=== PATIENT | female | born 1975 | race African-American/Black ===

== ENCOUNTER 2020-09-09 09:35 | Inpatient (IN) | payer SELFPAY ==
[~2020-09-09] VITALS: Ht 170.2 cm; Wt 79.5 kg
[2020-09-09] MEDS ORDERED: SODIUM CHLORIDE 0.9% 1,000 ML IV ONE ×2 (09:45)
[2020-09-09] MEDS ORDERED: DEXTROSE (50%) 50ML SYRG IV PRN ×2 (10:00→23:30)
[2020-09-09] MEDS ORDERED: InsuLIN R (HUMAN) 100 UNITS in SODIUM CHL 0.9% 99 ML IV SCH (10:00)
[2020-09-09] MEDS: SODIUM CHLORIDE 0.9% 1,000 ML IV SCH ×3 (10:00→19:30)
[2020-09-09] MEDS ORDERED: InsuLIN REG 1unit/0.01ml Soln (100units/ml) IV ONE (10:15)
[2020-09-09 10:27] LABS: Urine WBC None Seen /hpf (0 - 5)
[2020-09-09 10:39] LABS: Urine Bacteria NONE SEEN /hpf (None Seen); Urine Blood Negative /uL (Negative); Urine Specific Gravity 1.024 (1.001-1.035)
[2020-09-09 10:58] LABS: Potassium 4.8 mmol/L (3.5-5.1)
[2020-09-09 11:08] LABS: Basophils # (auto) 0.1 10 ^3/uL (0-0.2); Basophils % (auto) 0.5 % (0.0-2.0); Eosinophils # (auto) 0 10 ^3/uL (0-0.8); Eosinophils % (auto) 0.1 % (0.0-7.0); Hematocrit 47.1 % (36.0-46.0); Hemoglobin 14.7 g/dL (12.2-16.2); Lymphocytes # (auto) 1.4 10 ^3/uL (0.4-5.4); Lymphocytes % (auto) 7.9 % (10.0-50.0); Mean Corpuscular Hemoglobin 30.1 pg (28.0-32.0); Mean Corpuscular Hgb Conc. 31.1 g/dL (32.0-36.0); Mean Corpuscular Volume 96.6 fL (80.0-100.0); Monocytes # (auto) 0.5 10 ^3/uL (0-1.3); Monocytes % (auto) 2.9 % (0.0-12.0); Neutrophils # (auto) 16.1 10 ^3/uL (1.6-8.6); Neutrophils % (auto) 88.6 % (37.0-80.0); Platelet Count (auto) 278 10^3/uL (140-450); Red Blood Cells 4.87 10^6/uL (4.0-5.20); Red Cell Distribution Width 15.2 % (11.8-14.3); White Blood Cell 18.2 10^3/uL (4.4-10.8)
[2020-09-09 11:13] LABS: Albumin 4.4 g/dL (3.4-5.0); BUN/Creatinine Ratio 17.4; Bilirubin, Total 0.6 mg/dL (0.2-1.0); Magnesium 2.4 mg/dL (1.6-2.6); Phosphorus 7.4 mg/dL (2.5-4.90); Total Protein 8.8 g/dL (6.4-8.2)
[2020-09-09] MEDS: ACCU-CHEK COMFORT CURVE STRIP VI SCH ×8 (11:21→21:01)
[2020-09-09] MEDS ORDERED: PIPERACILLIN-TAZOB 3.375GM 100 ML IV ONE (11:45)
[2020-09-09] MEDS ORDERED: NITROGLYCERIN 0.4 MG SL TAB SL PRN ×2 (13:15→14:45)
[2020-09-09] MEDS ORDERED: MORPHINE SULF INJ 2 MG/ML SYRINGE 1ML IV PRN ×3 (13:15→14:45)
[2020-09-09] MEDS ORDERED: SODIUM CHLORIDE 0.9% 1,000 ML IV SCH ×2 (14:00→16:00)
[2020-09-09 14:14] LABS: Lactic Acid w/Reflex 2.4 mmol/L (0.4-2.0)
[2020-09-09] MEDS ORDERED: ALUM & MAG HYDROX-SIMETH LIQ(MAALOX) 30 ML PO PRN (14:45)
[2020-09-09] MEDS ORDERED: ACETAMINOPHEN 325 MG TAB PO PRN (14:45)
[2020-09-09] MEDS ORDERED: LORazepam 0.5 MG TAB PO PRN (14:45)
[2020-09-09] MEDS ORDERED: SUCRALFATE 1 GM/10 ML ORAL SUSP PO ONE (14:45)
[2020-09-09] MEDS ORDERED: PANTOPRAZOLE 40 MG/10 ML VIAL INJ IV ONE (14:45)
[2020-09-09] MEDS ORDERED: cefTRIAXone 1GM/50ML D5W 50 ML IV ONE (14:45)
[2020-09-09] MEDS ORDERED: DOCUSATE SOD 100 MG CAP PO PRN (14:45)
[2020-09-09] MEDS ORDERED: D5W/SOD CHLO 0.9% 1,000 ML IV SCH (14:45)
[2020-09-09] MEDS ORDERED: SODIUM CHLORIDE 0.9% 2,000 ML IV ONE (14:45)
[2020-09-09] MEDS ORDERED: HYDROcodone-ACET 5/325MG TAB PO PRN (14:45)
[2020-09-09] MEDS ORDERED: metroNIDAZOLE 500MG/100ML 100 ML IV ONE (15:30)
[2020-09-09] MEDS ORDERED: METF-929 PO (16:01)
[2020-09-09] MEDS ORDERED: ATOR10TA52 PO (16:01)
[2020-09-09] MEDS ORDERED: MULT1CHW18 PO (16:01)
[2020-09-09] MEDS ORDERED: INSUINJ37 SC (16:01)
[2020-09-09] MEDS ORDERED: ASPI-498 PO (16:01)
[2020-09-09 16:31] LABS: Anion Gap 14 (5-15); Blood Urea Nitrogen 15 mg/dL (7-18); Calcium 7.7 mg/dL (8.5-10.1); Carbon Dioxide 14 mmol/L (21-32); Chloride 113 mmol/L (98-107); Glucose 238 mg/dL (74-106); Potassium 4.2 mmol/L (3.5-5.1); Sodium 141 mmol/L (136-145)
[2020-09-09 16:34] LABS: Cholesterol 237 mg/dL (< 200); Triglycerides 132 mg/dL (< 150)
[2020-09-09 16:35] LABS: BUN/Creatinine Ratio 16.9; GFR African American 88 mL/min; GFR Non-African American 73 mL/min
[2020-09-09 16:36] LABS: HDL Cholesterol 43 mg/dL (40-59); LDL Cholesterol 169 mg/dL (< 100)
[2020-09-09] MEDS: SUCRALFATE 1 GM/10 ML ORAL SUSP PO SCH (22:00)
[2020-09-09] MEDS: metroNIDAZOLE 500MG/100ML 100 ML IV SCH (22:17)
[2020-09-09 23:24] LABS: Calcium 7.6 mg/dL (8.5-10.1); Potassium 3.5 mmol/L (3.5-5.1)
[2020-09-09 23:27] LABS: BUN/Creatinine Ratio 12.3
[2020-09-09] MEDS: ONDANSETRON HCL 4 MG/2 ML VIAL IV PRN (23:27)
[2020-09-10] MEDS ORDERED: ACCU-CHEK COMFORT CURVE STRIP VI SCH
[2020-09-10 00:15] VITALS: BP 132/60
[2020-09-10] MEDS: ACCU-CHEK COMFORT CURVE STRIP VI SCH ×4 (00:29→18:32)
[2020-09-10] MEDS: SODIUM CHLORIDE 0.9% 1,000 ML IV SCH ×4 (03:00→20:44)
[2020-09-10 04:30] LABS: BUN/Creatinine Ratio 10.6; Calcium 7.7 mg/dL (8.5-10.1); Potassium 3.7 mmol/L (3.5-5.1)
[2020-09-10 05:00] VITALS: BP 150/74
[2020-09-10] MEDS: InsuLIN REG 1unit/0.01ml Soln (100units/ml) SC SCH ×4 (06:00→18:32)
[2020-09-10] MEDS: metroNIDAZOLE 500MG/100ML 100 ML IV SCH ×3 (06:12→20:43)
[2020-09-10] MEDS: SUCRALFATE 1 GM/10 ML ORAL SUSP PO SCH ×4 (06:34→20:44)
[2020-09-10 07:49] LABS: Basophils # (auto) 0 10 ^3/uL (0-0.2); Basophils % (auto) 0.3 % (0.0-2.0); Eosinophils # (auto) 0 10 ^3/uL (0-0.8); Eosinophils % (auto) 0.3 % (0.0-7.0); Hemoglobin 12.7 g/dL (12.2-16.2); Lymphocytes # (auto) 2.7 10 ^3/uL (0.4-5.4); Lymphocytes % (auto) 19.3 % (10.0-50.0); Mean Corpuscular Hemoglobin 29.9 pg (28.0-32.0); Mean Corpuscular Hgb Conc. 32.6 g/dL (32.0-36.0); Mean Corpuscular Volume 91.7 fL (80.0-100.0); Monocytes % (auto) 7.1 % (0.0-12.0); Neutrophils # (auto) 10.3 10 ^3/uL (1.6-8.6); Platelet Count (auto) 247 10^3/uL (140-450); Red Blood Cells 4.25 10^6/uL (4.0-5.20); Red Cell Distribution Width 13.9 % (11.8-14.3); White Blood Cell 14.2 10^3/uL (4.4-10.8)
[2020-09-10 08:11] LABS: Calcium 8.2 mg/dL (8.5-10.1); Potassium 3.8 mmol/L (3.5-5.1)
[2020-09-10 08:15] LABS: Bilirubin, Total 0.5 mg/dL (0.2-1.0); Phosphorus 2.2 mg/dL (2.5-4.90); Total Protein 6.3 g/dL (6.4-8.2)
[2020-09-10 08:29] LABS: INR 0.95 (0.9-1.15); Partial Thromboplastin Time 23.9 sec (23.0-31.2)
[2020-09-10 08:59] VITALS: BP 136/65
[2020-09-10] MEDS: PANTOPRAZOLE 40 MG/10 ML VIAL INJ IV SCH (10:00)
[2020-09-10] MEDS: ENOXAPARIN SOD 40 MG/0.4 ML SYRINGE SC SCH (10:00)
[2020-09-10] MEDS: CEFTRIAXONE SODIUM 2 GM in D5W 5% 50 ML IV SCH (10:00)
[2020-09-10 13:00] VITALS: BP 149/80
[2020-09-10 16:45] VITALS: BP 156/79
[2020-09-10 22:00] VITALS: BP 158/83
[2020-09-11] MEDS: ACCU-CHEK COMFORT CURVE STRIP VI SCH ×3 (00:27→11:46)
[2020-09-11] MEDS: InsuLIN REG 1unit/0.01ml Soln (100units/ml) SC SCH ×3 (00:32→11:48)
[2020-09-11] MEDS: ONDANSETRON HCL 4 MG/2 ML VIAL IV PRN (02:23)
[2020-09-11] MEDS: SODIUM CHLORIDE 0.9% 1,000 ML IV SCH ×2 (05:03→11:30)
[2020-09-11 05:30] VITALS: BP 158/86
[2020-09-11 06:11] LABS: Basophils # (auto) 0 10 ^3/uL (0-0.2); Basophils % (auto) 0.5 % (0.0-2.0); Eosinophils # (auto) 0.1 10 ^3/uL (0-0.8); Hematocrit 34.1 % (36.0-46.0); Hemoglobin 11.5 g/dL (12.2-16.2); Lymphocytes # (auto) 2.3 10 ^3/uL (0.4-5.4); Lymphocytes % (auto) 23.8 % (10.0-50.0); Mean Corpuscular Hemoglobin 30.5 pg (28.0-32.0); Mean Corpuscular Hgb Conc. 33.7 g/dL (32.0-36.0); Mean Corpuscular Volume 90.5 fL (80.0-100.0); Monocytes # (auto) 0.7 10 ^3/uL (0-1.3); Monocytes % (auto) 7.7 % (0.0-12.0); Neutrophils # (auto) 6.3 10 ^3/uL (1.6-8.6); Nucleated Red Blood Cells % 0.1 %; Platelet Count (auto) 190 10^3/uL (140-450); Red Blood Cells 3.76 10^6/uL (4.0-5.20); Red Cell Distribution Width 13.6 % (11.8-14.3); White Blood Cell 9.5 10^3/uL (4.4-10.8)
[2020-09-11] MEDS: SUCRALFATE 1 GM/10 ML ORAL SUSP PO SCH ×2 (06:15→11:30)
[2020-09-11] MEDS: metroNIDAZOLE 500MG/100ML 100 ML IV SCH ×2 (06:21→14:00)
[2020-09-11 06:36] LABS: INR 0.96 (0.9-1.15)
[2020-09-11 06:37] LABS: Albumin 2.8 g/dL (3.4-5.0); Bilirubin, Total 0.4 mg/dL (0.2-1.0); Calcium 7.9 mg/dL (8.5-10.1); Magnesium 1.6 mg/dL (1.6-2.6); Phosphorus 1.5 mg/dL (2.5-4.90); Total Protein 5.8 g/dL (6.4-8.2)
[2020-09-11 08:30] VITALS: BP 148/81
[2020-09-11] MEDS: ENOXAPARIN SOD 40 MG/0.4 ML SYRINGE SC SCH (10:00)
[2020-09-11] MEDS: PANTOPRAZOLE 40 MG/10 ML VIAL INJ IV SCH (10:06)
[2020-09-11] MEDS: CEFTRIAXONE SODIUM 2 GM in D5W 5% 50 ML IV SCH (10:06)
[2020-09-11 11:59] VITALS: BP 155/77
[2020-09-11] MEDS ORDERED: NEUTRA-PHOS TABLET PO ONE (12:45)
== END 2020-09-11 15:26 | disposition home or self-care (01) | DRG 637 ==
LOC: EDBD 09:35 → ER 09:35 → TELE-WESTW 09:36 → UNDOADMIN 09:36 → TELE 09:36
PROVIDERS: ADMIT Hospitalist; ATTEND Hospitalist
DX: E11.10 Type 2 diabetes mellitus with ketoacidosis without coma (principal); N17.0 Acute kidney failure with tubular necrosis; N39.0 Urinary tract infection, site not specified; Z20.822 Contact with and (suspected) exposure to COVID-19; E78.5 Hyperlipidemia, unspecified; E83.39 Other disorders of phosphorus metabolism; E86.0 Dehydration; E87.6 Hypokalemia; F17.200 Nicotine dependence, unspecified, uncomplicated; I10 Essential (primary) hypertension; K21.9 Gastro-esophageal reflux disease without esophagitis; K29.70 Gastritis, unspecified, without bleeding; K52.9 Noninfective gastroenteritis and colitis, unspecified; Z79.4 Long term (current) use of insulin; Z91.19 Patient's noncompliance with other medical treatment and regimen; Z79.899 Other long term (current) drug therapy; Z79.891 Long term (current) use of opiate analgesic; Z79.01 Long term (current) use of anticoagulants; Z79.82 Long term (current) use of aspirin
CPT/HCPCS: 36415; 36600; 71045; 74176; 80048; 80053; 80061; 81001; 82010; 82306; 82805; 82962; 83036; 83605; 83690; 83735; 83930; 84100; 84443; 84484; 85025; 85610; 85730; 87040; 87086; 87426; 93005; 96365; 96367; 96375; 99291; C9113; G0378; J0696; J1815; J2405; J2543; J3490; J7060